=== PATIENT | female | born 1990 | race Caucasian/White ===

== ENCOUNTER 2022-06-12 07:53 | Emergency (ER) | payer MEDICAID ==
[~2022-06-12] VITALS: Ht 152.4 cm; Wt 59.0 kg
[2022-06-12 08:11] VITALS: BP 125/79
--- NOTE | 2022-06-12 08:13 | NUR ---
PT AMBULATED TO LOBBY
--- NOTE | 2022-06-12 08:33 | NUR ---
31/F WALKED IN C/O RIGHT SIDED RIB PAIN ONSET LAST NIGHT AFTER LIFTING WEIGHTS AT [employer]. DENIES FALL OR INJURY. REPORTS 7/10 CONSTANT AND SHARP PAIN. AAO4, AMBULATORY, VITALS STABLE. NO ACUTE DISTRESS NOTED. PMH: DENIES
[2022-06-12] MEDS ORDERED: NAPR-54 PO (10:27)
== END 2022-06-12 10:37 | disposition home or self-care (01) ==
LOC: MED 07:53
DX: S29.011A Strain of muscle and tendon of front wall of thorax, initial encounter (principal); X58.XXXA Exposure to other specified factors, initial encounter; Y93.89 Activity, other specified; Y92.89 Other specified places as the place of occurrence of the external cause; Y99.8 Other external cause status
CPT/HCPCS: 71100; 81025; 99283